=== PATIENT | female | born 1995 | race Hispanic/Latino ===

== ENCOUNTER 2017-12-20 22:42 | Emergency (ER) | payer OTHER ==
[2017-12-20] MEDS ORDERED: levETIRAcetam 500 MG TAB PO SCH (23:59)
== END 2017-12-21 00:54 | disposition home or self-care (01) ==
LOC: ERS 22:42
DX: R56.9 Unspecified convulsions (principal); F84.0 Autistic disorder; D64.9 Anemia, unspecified; J45.909 Unspecified asthma, uncomplicated
CPT/HCPCS: 99284